=== PATIENT | male | born 1980 | race Caucasian/White ===

== ENCOUNTER 2020-08-30 13:11 | Emergency (ER) | payer OTHER ==
[~2020-08-30] VITALS: Ht 182.9 cm; Wt 99.8 kg
[~2020-08-30 13:11] MED LIST: AZIT250 PO; Acular3 ML RIGHTEYE; Augmentin 875-1 EACH PO; BENZ100A PO; CEPH500; CODACE30 PO; ERYT.5TO RIGHTEYE; Esgic Tablet1 EACH PO; HYDACE5 PO; MOMENI; NAPR500 PO; Norco 5-325 Ta1 EACH PO; OXYACE5T PO; PROCODE120 PO; PROM25 PO; PSEU120ER PO; RXCODACET PO; RXHYDACE PO; RXOXYACE PO; RXPROM25 PO; RXTRAM50 PO; SULTRIDS PO; TRAM50 PO
[2020-08-30] MEDS ORDERED: Norco 5-325 Ta1 EACH PO (15:40)
[2020-08-30] MEDS ORDERED: CYCL10 PO (15:40)
== END 2020-08-30 15:47 | disposition home or self-care (01) ==
LOC: ER 13:11
DX: S60.211A Contusion of right wrist, initial encounter (principal); S80.11XA Contusion of right lower leg, initial encounter; M54.2 Cervicalgia; R07.81 Pleurodynia; V86.99XA Unspecified occupant of other special all-terrain or other off-road motor vehicle injured in nontraffic accident, initial encounter
CPT/HCPCS: 71100; 72125; 73120; 73590; 96372; 99284-25; A9270; J1885

== ENCOUNTER 2020-09-15 12:10 | Inpatient (IN) | payer OTHER ==
[~2020-09-15] VITALS: Ht 182.9 cm; Wt 105.6 kg
[~2020-09-15 12:10] MED LIST changes: +CYCL10 PO
[2020-09-15 12:43] LABS: BASOPHILS ABSOLUTE AUTO 0.01 K/mm3 (0.00-0.23); BASOPHILS PERCENT AUTO 0 % (0-2); EOSINOPHILS ABSOLUTE AUTO 0.57 K/mm3 (0.00-0.68); EOSINOPHILS PERCENT AUTO 7 % (0-6); Hematocrit 39.4 % (37.0-53.0); Hemoglobin 13.3 g/dL (13.5-17.5); IMMATURE GRAN ABSOLUTE AUTO 0.04 K/mm3 (0.00-0.10); IMMATURE GRAN PERCENT AUTO 1 % (0-1); LYMPHOCYTES ABSOLUTE AUTO 0.26 K/mm3 (0.84-5.20); LYMPHOCYTES PERCENT AUTO 3 % (21-46); MONOCYTES ABSOLUTE AUTO 0.28 K/mm3 (0.16-1.47); MONOCYTES PERCENT AUTO 4 % (4-13); Mean Corpuscular HGB 31.8 pg (26.0-34.0); Mean Corpuscular HGB Conc 33.8 g/dL (31.5-36.5); Mean Corpuscular Volume 94 fL (80-100); Mean Platelet Volume 9.6 fL (9.1-12.4); NEUTROPHILS PERCENT AUTO 85 % (41-73); Platelet Count 242 K/mm3 (150-400); RDW Coefficient Variation 11.9 % (11.7-14.2); RDW Standard Deviation 41.1 fL (35.1-46.3); Red Blood Cell Count 4.18 M/mm3 (4.30-5.90); White Blood Cell Count 7.66 K/mm3 (4.00-11.30)
[2020-09-15 12:57] LABS: Alanine Aminotransfer (ALT/SGP 51 U/L (12-78); Albumin, Blood 3.3 g/dL (3.4-5.0); Albumin/Globulin Ratio 0.9 (0.8-1.8); Alk Phos 140 U/L (50-136); Anion Gap 5 mmol/L (6-16); Aspartate Aminotrans (AST/SGOT 27 U/L (12-37); Bilirubin, Total 0.6 mg/dL (0.1-1.0); Blood Urea Nitrogen 11 mg/dL (8-24); Bun/Creatinine Ratio 10.1 (12.0-20.0); CO2, Blood 27 mmol/L (21-32); Calcium, Blood 8.4 mg/dL (8.5-10.1); Chloride, Blood 102 mmol/L (98-108); Creatinine, Blood 1.09 mg/dL (0.60-1.20); Globulin, Blood 3.8 g/dL (2.2-4.0); Glomerular Filtration Rate >60 (60-); Glucose, Blood 96 mg/dL (70-99); Potassium, Blood 3.9 mmol/L (3.5-5.5); Sodium, Blood 134 mmol/L (136-145); Total Protein, Blood 7.1 g/dL (6.4-8.2)
[2020-09-15] MEDS ORDERED: SULFAMETHOXAZO1 EAC1 PO (15:22)
[2020-09-15] MEDS ORDERED: AMOX-CLAV 875-1 EAC4 PO (15:22)
--- NOTE | 2020-09-16 04:41 | NUR ---
SHIFT SUMMARY: VSS. AFEB. 02 93-100% ON RA. RESPS REG, EVEN, NON-LABORED. NO COUGHING. IV FLUIDS CONTINUOUSLY. IV ABT INFUSED PER ORDERS. L ANTERIOR BAUM WOUND BED 80% COVERED IN [place]. ERYTHEMA TO ENTIRE LLE BELOW THE KNEE. PETECHIAL TYPE RASH SCATTERED ACROSS ARMS, LEGS, L HIP, R TRUNK, AND BACK. PHOTOS IN PT'S CHART. BENADRYL GIVEN Q6HRS TONIGHT, PT STATES ITCH IS IMPROVED. MED FOR PAIN PER EMAR- PAIN IS MOSTLY IN PT'S HEAD AND NECK. UP INDEPENDENTLY IN ROOM. AAOX4. NO ACUTE CHANGES OVERNIGHT. WCTM.
[2020-09-16 05:32] LABS: BASOPHILS ABSOLUTE AUTO 0.01 K/mm3 (0.00-0.23); BASOPHILS PERCENT AUTO 0 % (0-2); EOSINOPHILS ABSOLUTE AUTO 0.82 K/mm3 (0.00-0.68); EOSINOPHILS PERCENT AUTO 15 % (0-6); Hematocrit 38.8 % (37.0-53.0); Hemoglobin 12.6 g/dL (13.5-17.5); IMMATURE GRAN ABSOLUTE AUTO 0.02 K/mm3 (0.00-0.10); IMMATURE GRAN PERCENT AUTO 0 % (0-1); LYMPHOCYTES ABSOLUTE AUTO 0.82 K/mm3 (0.84-5.20); LYMPHOCYTES PERCENT AUTO 15 % (21-46); MONOCYTES PERCENT AUTO 7 % (4-13); Mean Corpuscular HGB 31.3 pg (26.0-34.0); Mean Corpuscular HGB Conc 32.5 g/dL (31.5-36.5); Mean Corpuscular Volume 97 fL (80-100); Mean Platelet Volume 9.7 fL (9.1-12.4); NEUTROPHILS ABSOLUTE AUTO 3.31 K/mm3 (1.96-9.15); NEUTROPHILS PERCENT AUTO 62 % (41-73); Platelet Count 230 K/mm3 (150-400); Red Blood Cell Count 4.02 M/mm3 (4.30-5.90); White Blood Cell Count 5.38 K/mm3 (4.00-11.30)
[2020-09-16 05:51] LABS: Anion Gap 7 mmol/L (6-16); Blood Urea Nitrogen 14 mg/dL (8-24); Bun/Creatinine Ratio 13.3 (12.0-20.0); CO2, Blood 27 mmol/L (21-32); Calcium, Blood 8.4 mg/dL (8.5-10.1); Chloride, Blood 105 mmol/L (98-108); Creatinine, Blood 1.05 mg/dL (0.60-1.20); Glomerular Filtration Rate >60 (60-); Glucose, Blood 95 mg/dL (70-99); Potassium, Blood 3.6 mmol/L (3.5-5.5); Sodium, Blood 139 mmol/L (136-145)
[2020-09-16] MEDS ORDERED: Acetaminophen325 M1 PO (14:39)
[2020-09-16] MEDS ORDERED: ONDA4 PO (14:40)
[2020-09-16] MEDS ORDERED: BANOPHEN25 MG PO (14:40)
[2020-09-16] MEDS ORDERED: LIQUITEARS TOP (14:43)
[2020-09-16] MEDS ORDERED: PRED5 PO (14:44)
[2020-09-16] MEDS ORDERED: TRAM50 PO (14:45)
[2020-09-16] MEDS ORDERED: LEVOFLOXACIN750 MG PO (14:45)
--- NOTE | 2020-09-16 17:21 | NUR ---
HE FELT BETTER THE DAY PROGRESSED BUT STILL HAS A LONG WAY TO GO. HIS HEAD AND NECK HURT HIM THE MOST. THE LIGHT ALSO HURTS HIS EYES. HE HAS A LITTLE BLOOD IN THE L SCLERA. HE SAYS THE PRESSURE IN HIS HEAD HAS LESSENED. NO FEVERS. EATING AND DRINKING WELL. TRAMADOL PAIN MEDICINE PARTIALLY EFFECTIVE. HE ALSO USED AN ICE PACK TO HIS EYES PRN. BOTH SHINS RED. R BAUM SCABBED. NO SWELLING. THE L LOWER LEG IS SWOLLEN, RED AND HAS AN OPEN WOUND. THE DRESSING WAS CHANGED REQUESTED BY THE DOCTOR. CLEANED, ABD AND KERLIX. HIS L FOOT HAS 3+ EDEMA. HE CAN STAND AND WALK INDEPENDENTLY. HE DENIES ANY DIFFICULTY VOIDING. HIS GIRLFRIEND PICKED HIM UP AT 1617. HE HAD HIS INSTRUCTIONS, BELONGINGS AND SOME DRESSING SUPPLIES. THE [facility] WILL CALL HIM AT HOME TO GIVE HIS HIS 1ST APPT. TIME. WILL SEE HIM AN OUTPT.
== END 2020-09-16 16:11 | disposition home or self-care (01) | DRG 607 ==
LOC: ER 12:10 → MEDS 17:14
PROVIDERS: Family Medicine; Physician Assistant; ADMIT Internal Medicine
DX: L27.0 Generalized skin eruption due to drugs and medicaments taken internally (principal); T36.1X5A Adverse effect of cephalosporins and other beta-lactam antibiotics, initial encounter; T36.8X5A Adverse effect of other systemic antibiotics, initial encounter; T36.0X5A Adverse effect of penicillins, initial encounter; Z87.891 Personal history of nicotine dependence
CPT/HCPCS: 36415; 80048; 80053; 85025; 86140; 87070; 87075; 87077; 87186; 87205; 96374; 99284-25; A9270; J1170; J1650; J1956; J2405; J3370; J7050; J7120; J7512

== ENCOUNTER 2020-09-22 00:45 | Day surgery (SDC) | payer OTHER ==
[~2020-09-22 00:45] MED LIST changes: +AMOX-CLAV 875-1 EAC4 PO; +Acetaminophen325 M1 PO; +BANOPHEN25 MG PO; +LEVOFLOXACIN750 MG PO; +LIQUITEARS TOP; +ONDA4 PO; +PRED5 PO; +SULFAMETHOXAZO1 EAC1 PO
== END 2020-09-22 23:55 | disposition home or self-care (01) ==
LOC: WOUND 00:45
DX: S81.802D Unspecified open wound, left lower leg, subsequent encounter (principal); L08.9 Local infection of the skin and subcutaneous tissue, unspecified; V86.59XD Driver of other special all-terrain or other off-road motor vehicle injured in nontraffic accident, subsequent encounter; Z88.1 Allergy status to other antibiotic agents
CPT/HCPCS: A9270; G0463

== ENCOUNTER 2020-09-29 00:51 | Day surgery (SDC) | payer OTHER | END 2020-09-29 22:52 | disposition home or self-care (01) | LOC: WOUND 00:51 | DX: S81.802D Unspecified open wound, left lower leg, subsequent encounter (principal); B95.61 Methicillin susceptible Staphylococcus aureus infection as the cause of diseases classified elsewhere; V86.69XD Passenger of other special all-terrain or other off-road motor vehicle injured in nontraffic accident, subsequent encounter; Z88.2 Allergy status to sulfonamides | CPT/HCPCS: A9270 ==

== ENCOUNTER 2020-10-06 01:06 | Day surgery (SDC) | payer OTHER | END 2020-10-06 22:39 | disposition home or self-care (01) | LOC: WOUND 01:06 | DX: S81.832A Puncture wound without foreign body, left lower leg, initial encounter (principal) | CPT/HCPCS: A9270 ==

== ENCOUNTER 2020-10-17 00:52 | Day surgery (SDC) | payer OTHER | END 2020-10-17 23:04 | disposition home or self-care (01) | LOC: WOUND 00:52 | DX: S81.802D Unspecified open wound, left lower leg, subsequent encounter (principal); V86.69XD Passenger of other special all-terrain or other off-road motor vehicle injured in nontraffic accident, subsequent encounter | CPT/HCPCS: A9270 ==

== ENCOUNTER 2020-11-04 08:00 | Day surgery (SDC) | payer OTHER | END 2020-11-04 23:59 | disposition home or self-care (01) | LOC: WOUND 08:00 | DX: S81.802D Unspecified open wound, left lower leg, subsequent encounter (principal); X58.XXXD Exposure to other specified factors, subsequent encounter | CPT/HCPCS: A9270; G0463 ==

== ENCOUNTER → 2024-04-18 | Outpatient (CLI) | payer OTHER ==
[2024-04-19 13:44] LABS: Adenovirus F 40/41 Not Detected (NOT DETECT); Astrovirus Not Detected (NOT DETECT); Campylobacter Sp Not Detected (NOT DETECT); Cryptosporidium Not Detected (NOT DETECT); Cyclospora Cayetanensis Not Detected (NOT DETECT); E. Coli O157 Not Detected (NOT DETECT); Entamoeba Histolytica Not Detected (NOT DETECT); Enteroaggregative E. coli-EAEC Not Detected (NOT DETECT); Enteropathogenic E. coli-EPEC Not Detected (NOT DETECT); Enterotoxigenic E. coli-ETEC Not Detected (NOT DETECT); Giardia Lamblia Not Detected (NOT DETECT); Norovirus GI/GII Not Detected (NOT DETECT); Plesiomonas Shigelloides Not Detected (NOT DETECT); Rotavirus A Not Detected (NOT DETECT); Salmonella Sp Not Detected (NOT DETECT); Sapovirus Not Detected (NOT DETECT); Shiga Toxin-prod E. coli-STEC Not Detected (NOT DETECT); Shigella/Enteroin E. coli-EIEC Not Detected (NOT DETECT); Vibrio Cholerae Not Detected (NOT DETECT); Vibrio Sp Not Detected (NOT DETECT); Yersinia Enterocolitica Not Detected (NOT DETECT)
== END ==
LOC: LAB SHORT 20:30 → LAB 20:30
PROVIDERS: Physician Assistant
DX: R19.7 Diarrhea, unspecified (principal)
CPT/HCPCS: 87507

== ENCOUNTER 2025-02-26 21:56 | Emergency (ER) | payer OTHER ==
[~2025-02-26] VITALS: Ht 180.3 cm; Wt 83.0 kg
[2025-02-27 00:22] VITALS: BP 120/76
== END 2025-02-27 00:29 | disposition home or self-care (01) ==
LOC: ER 21:56
DX: S00.03XA Contusion of scalp, initial encounter (principal); Z87.891 Personal history of nicotine dependence; Z88.1 Allergy status to other antibiotic agents; Z79.899 Other long term (current) drug therapy; Z59.89 Other problems related to housing and economic circumstances; W20.8XXA Other cause of strike by thrown, projected or falling object, initial encounter
CPT/HCPCS: 70450; 72125; 99283-25